=== PATIENT | female | born 1980 | race Caucasian/White ===

== ENCOUNTER → 2024-04-08 17:59 | Outpatient (REF) | payer BC, SELFPAY | LOC: RAD 17:59 | PROVIDERS: ATTENDING PHYSICIAN Nurse Practitioner Family | DX: K59.00 Constipation, unspecified (principal) | CPT/HCPCS: 74018 ==

== ENCOUNTER → 2024-08-04 09:54 | Outpatient (REF) | payer BC, SELFPAY | LOC: HWWDC 09:54 | PROVIDERS: ATTENDING PHYSICIAN Nurse Practitioner Adult Health; FAMILY PHYSICIAN Family Medicine | DX: N92.4 Excessive bleeding in the premenopausal period (principal); Z12.31 Encounter for screening mammogram for malignant neoplasm of breast | CPT/HCPCS: 76830; 76856; 77063; 77067 ==

== ENCOUNTER 2024-10-07 06:18 | Day surgery (SDC) | payer BC, SELFPAY | END 2024-10-07 09:40 | disposition home or self-care (01) | LOC: GI 06:18 | PROVIDERS: ATTENDING PHYSICIAN Internal Medicine Gastroenterology | DX: R19.4 Change in bowel habit (principal); K64.8 Other hemorrhoids; K92.1 Melena | CPT/HCPCS: 45378 ==